=== PATIENT | female | born 1970 | race Caucasian/White ===

== ENCOUNTER → 2017-10-24 10:03 | Outpatient (CLI) | payer OTHER, SELFPAY ==
--- NOTE | 2017-10-24 10:14 | XR_ITS ---
XR cervical spine 5V Ordering Physician: Kashif Yang Patient Age: 47 years: Female HISTORY: ITS.REASON: NECK PAIN,ARM PAIN Neck pain radiates to the left arm bilateral arm numbness TECHNIQUE: Five-view cervical spine series. COMPARISON :None FINDINGS Cervical spine intact with no fracture nor subluxation. Nonspecific straightening most likely positional. Prevertebral soft tissues appear normal. Facets with normal relationships and satisfactory. No foramen widely patent. The disc spaces are well-maintained with only borderline narrowing C6/7. Mild anterior marginal osteophytes at C6/7. No prominent nor definitive spurring; only questionable subtle scant posterior ridging developing at C6/7. Equivocal. C1-C2 relationships appear normal. The dens appears normal. Apices the lungs are clear. Tiny linear 3 mm length less than 1 mm wide metallic appearing foreign body is projected over the cervical esophagus region lateral view but is not seen on other views and thus I favor is merely artifact on the cassette IMPRESSION: Cervical spine intact No prominent findings. Only Borderline disc narrowing C6/7. Anterior marginal osteophytes; and only question scant early posterior ridging at C6/7 No foraminal encroachment Nonspecific straightening noted. Most likely positional but can reflect muscle spasm related discomfort, pain
== END ==
PROVIDERS: PCP Internal Medicine; Visit Provider Internal Medicine
DX: M54.2 Cervicalgia (principal); M54.10 Radiculopathy, site unspecified; M79.602 Pain in left arm
CPT/HCPCS: 72050

== ENCOUNTER → 2022-07-10 12:50 | Outpatient (CLI) | payer OTHER, SELFPAY ==
[2022-07-10 16:09] LABS: Benzodiazepines Screen,Urine Negative ng/ml (<200)
[2022-07-10 16:10] LABS: Amphetamine/Metha Screen,Urine Negative ng/ml (<1000)
[2022-07-10 16:11] LABS: Barbiturates Screen,Urine Negative ng/ml (<200); Cannabinoid Screen,Urine Negative ng/ml (<50)
[2022-07-10 16:12] LABS: Cocaine Screen,Urine Negative ng/ml (<300)
[2022-07-10 16:13] LABS: Methadone Screen,Urine Negative ng/ml (<300); Opiate Screen,Urine Positive ng/ml (<300)
[2022-07-10 16:14] LABS: Phencyclidine Screen,Urine Negative ng/ml (<25)
== END ==
PROVIDERS: PCP Internal Medicine; Visit Provider Internal Medicine
DX: F11.90 Opioid use, unspecified, uncomplicated (principal); F41.9 Anxiety disorder, unspecified
CPT/HCPCS: 80305

== ENCOUNTER → 2022-10-09 11:05 | Outpatient (CLI) | payer OTHER, SELFPAY ==
--- NOTE | 2022-10-09 11:13 | CT_ITS ---
FINAL REPORT CLINICAL HISTORY: fall from horse 2 months ago. , posterior headaches, neck pain and stiffness, memory changes FINDINGS: Axial images of the head were obtained without contrast. Coronal reformatted images were also obtained.This study was performed with techniques to keep radiation doses as low as reasonably achievable (ALARA). Individualized dose reduction techniques using automated exposure control or adjustment of mA and/or kV according to the patient''s size were employed. There is no evidence of intracranial hemorrhage or mass. The ventricular size is within normal limits. There is no evidence of shift of the midline structures. No abnormal extra axial fluid collection is identified. A retention cyst or polyp is seen in the left maxillary sinus. No skull abnormality is seen on the bone window images. IMPRESSION: No acute intracranial abnormality. Reviewed, Interpreted and Dictated by Tyler Azevedo III, MD Transcribed by Estelle Zuluaga Authenticated and [facility]
--- NOTE | 2022-10-09 11:13 | CT_ITS ---
FINAL REPORT TECHNIQUE: Thin section axial CT images with coronal and sagittal reformats were performed through the neck. This study was performed with techniques to keep radiation doses as low as reasonably achievable (ALARA). Individualized dose reduction techniques using automated exposure control or adjustment of mA and/or kV according to the patient''s size were employed. CLINICAL HISTORY: FALL FROM HORSE 2MONTHS AGO,HEADACHES,NECK PAIN/STIFFNESS FINDINGS: There are small bilateral neck lymph nodes. No fluid collection is seen. No adenopathy or mass lesion is present . Salivary glands are normal. Nasopharynx, oropharynx, hypopharynx and larynx are unremarkable. Thyroid gland is unremarkable. There is no fracture of the cervical spine. There are mild degenerative changes with mild central canal stenosis at C6-7 secondary to disc osteophyte complex and small central disc protrusion. IMPRESSION: Small bilateral neck lymph nodes, otherwise unremarkable exam. No acute bony abnormality of the cervical spine. Reviewed, Interpreted and Dictated by Tyler Azevedo III, MD Transcribed by Estelle Zuluaga Authenticated and [facility]
== END ==
LOC: RAD 11:08
PROVIDERS: PCP Internal Medicine; Visit Provider Internal Medicine
DX: G44.321 Chronic post-traumatic headache, intractable (principal); M54.2 Cervicalgia; R41.3 Other amnesia; H93.19 Tinnitus, unspecified ear; V80.010D Animal-rider injured by fall from or being thrown from horse in noncollision accident, subsequent encounter
CPT/HCPCS: 70450; 70490; 72125

== ENCOUNTER → 2022-11-08 14:25 | Outpatient (CLI) | payer OTHER, SELFPAY ==
[2022-11-08 15:12] LABS: Basophils # 0.1 K/mm3 (0-0.2); Basophils % 0.8 % (0.1-2.0); Eosinophils # 0.2 K/mm3 (0.0-0.4); Eosinophils % 1.9 % (0.1-12.0); Hematocrit 49.6 % (37.0-47.0); Hemoglobin 16.1 g/dL (12.2-16.2); Lymphocytes % 38.3 % (10-50); Mean Corpuscular HGB Conc 32.4 g/dL (31.8-35.4); Mean Corpuscular Hemoglobin 30.9 pg (27.0-31.2); Mean Corpuscular Volume 95.4 fl (81-99); Mean Platelet Volume 11.7 fl (7.4-10.4); Monocytes # 0.5 K/mm3 (0.1-1.0); Neutrophils # 4.2 K/mm3 (1.8-7.8); Neutrophils % 52.9 % (37.0-80.0); Platelet Count 227 K/mm3 (142-424); Red Cell Distribution Width 12.7 % (11.5-17.5); White Blood Count 7.9 K/mm3 (4.8-10.8)
[2022-11-08 16:04] LABS: Alanine Aminotransferase 16 U/L (12-78); Albumin Level 4.6 g/dl (3.5-5.0); Alkaline Phosphatase 91 U/L (38-126); Aspartate Amino Transferase 17 U/L (14-36); Bilirubin,Total 0.7 mg/dl (0.2-1.3); Blood Urea Nitrogen 10 mg/dl (7-17); Calcium 9.8 mg/dl (8.4-10.2); Carbon Dioxide 28 mmol/L (22.0-30.0); Chloride 106 mmol/L (98-107); Estimated Glomerular Filt Rate 88 ml/min (>60); GFR (African American) 106 ML/MIN (>60); Globulin 2.3 g/dL (1.3-3.2); Glucose 88 mg/dl (74-100); Sodium 144 mmol/L (136-145); Total Protein,Serum 6.9 g/dl (6.3-8.2)
[2022-11-08 16:19] LABS: Free T4 (Free Thyroxine) 0.93 ng/dl (0.78-2.19)
[2022-11-08 16:33] LABS: Thyroid Stimulating Hormone 0.69 uIU/mL (0.465-4.68)
[2022-11-08 16:35] LABS: Erythrocyte Sedimentation Rate 7 mm/hr (0-30)
== END ==
PROVIDERS: PCP Internal Medicine; Visit Provider Internal Medicine
DX: I10 Essential (primary) hypertension (principal); F41.9 Anxiety disorder, unspecified; R51.9 Headache, unspecified; R63.4 Abnormal weight loss; B02.29 Other postherpetic nervous system involvement
CPT/HCPCS: 80053; 84439; 84443; 85025; 85651

== ENCOUNTER 2023-03-17 00:06 | Emergency (ER) | payer OTHER, SELFPAY ==
--- NOTE | 2023-03-17 00:15 | HMH.EDGENADL ---
Discharge Plan Disposition Patient Disposition: Home, Self-Care Referrals Follow up/Referrals: Kashif Yang MD [Primary Care Provider] - See instructions Activity Restrictions/Add. Instructions Additional Instructions/Restrictions: Your CT scan showed that your pituitary gland looked abnormal. It also shows that you might have a small left-sided aneurysm. This needs to be followed up with a urgent outpatient MRI and MR angiogram of the brain for further assessment. Please follow-up with your primary care provider. Please return to the emergency department if you develop any new or worsening symptoms or become concerned for your health. Clinical Impressions Clinical Impression: Pituitary lesion Headache Qualifiers: Headache type: unspecified Headache chronicity pattern: acute headache Intractability: not intractable Qualified Code(s): R51.9 - Headache, unspecified Discharge ED Provider: Ted Dumont Adult HPI General Chief complaint: Headache Stated complaint: eye pain, headache Time Seen by Provider: 03/17/23 00:10 History of Present Illness HPI narrative: 52-year-old female presents with right frontal headache for the last couple of days. She reports that she has been evaluated for headache and issues with her right eye over the last year after a fall off of a horse. She reports that she was recently seen by a retina specialist and there is some concern about an aneurysm, though she does not have a formal diagnosis at this point. She reports her headache has been present for the last couple of days, but acutely worsened this evening. She reports some nausea associated with this. She denies any vision changes chest pain shortness of breath neck pain. She took something at home for pain but is unsure what. Related Data Allergies Allergy/AdvReac Type Severity Reaction Status Date / Time From [facility] Allergy Intermediate I-RASH Uncoded 03/20/17 15:41 [facility] Disclaimer: The information contained in this section may have been updated after the patient was seen, as this information can be updated by other users. Social History Smoking Status: Unknown if ever smoked alcohol intake: never current occupational status: other Travel in the last 8 weeks: None ROS Obtained: Yes All systems reviewed & no additional complaints except as documented Physical Exam General General appearance: alert and anxious Head Head exam: atraumatic and normocephalic Eye Eye exam: Present normal appearance, PERRL and EOMI ENT ENT exam: Present normal oropharynx and normal external ear exam Neck Neck exam: Present normal inspection and full ROM Chest Chest inspection: Present normal inspection and symmetric chest wall rise; Absent tenderness Respiratory Respiratory exam: Present normal lung sounds bilaterally; Absent respiratory distress Cardiovascular Cardiovascular exam: Present regular rate and normal rhythm Abdominal Exam Abdominal exam: Present soft; Absent distention, tenderness or guarding Extremities Exam Extremities exam: Present normal inspection; Absent edema or joint swelling Back Exam Back exam: Present normal inspection; Absent tenderness Neurological Exam Neurological exam: Present alert and oriented X3; Absent motor sensory deficit Psychiatric Psychiatric exam: Present normal affect and normal mood Skin Skin exam: Present warm, dry and normal color Lymphatic Lymphatic Findings: no adenopathy Medical Decision Making Medical Records Medical records reviewed: Yes I reviewed the patient's medical records. Ángel Inquiry Pt receiving controlled substance: No Ángel was queried for this patient: No Vital Signs: 03/17/23 00:20 03/17/23 00:30 03/17/23 01:00 Temperature 98.9 F Temperature Source Oral Pulse Rate 65 68 Pulse Rate [Right Brachial] 83 Respiratory Rate 15 18 20 Blood Pressure 159/92 H 146/88 H Blood Pressure [Right Arm] 153/91 H Blood Pressure Mean 114 113 Bl
[2023-03-17 00:20] VITALS: BP 153/91; PULSE 83; RESP 15; TEMP 37.2; O2SAT 100; BMI 18.8
--- NOTE | 2023-03-17 00:23 | CT_ITS ---
PROCEDURE INFORMATION: Exam: CTA Head With Contrast, Arteriography Exam date and time: 03/17/2023 12:48 AM Age: 52 years old Clinical indication: Pain; Headache; Additional info: Acute R eye pain/almeida, nausea, HX poss aneurysm TECHNIQUE: Imaging protocol: Computed tomographic angiography of the head with contrast. Exam focused on the arteries. 3D rendering (Not supervised by radiologist): MIP and/or 3D reconstructed images were created by the technologist. Radiation optimization: All CT scans at this facility use at least one of these dose optimization techniques: automated exposure control; mA and/or kV adjustment per patient size (includes targeted exams where dose is matched to clinical indication); or iterative reconstruction. Contrast material: ISOVUE; Contrast volume: 100 ml; Contrast route: INTRAVENOUS (IV); REPORTING DATA: Count of CT and Cardiac NM exams in prior 12 months: This patient has received 2 known CTs and 0 known cardiac nuclear medicine studies in the 12 months prior to the current study. COMPARISON: CT HEAD/BRAIN WO CON 03/17/2023 12:46 AM FINDINGS: ANTERIOR CIRCULATION: Right internal carotid artery: Intracranial segment is patent with no significant stenosis. No aneurysm. Right middle cerebral artery: No occlusion or significant stenosis. No aneurysm. Right anterior cerebral artery: No occlusion or significant stenosis. No aneurysm. Left internal carotid artery: Intracranial segment is patent with no significant stenosis. 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 Left middle cerebral artery: No occlusion or significant stenosis. No aneurysm. Left anterior cerebral artery: No occlusion or significant stenosis. No aneurysm. POSTERIOR CIRCULATION: Right vertebral artery: No occlusion or significant stenosis. No aneurysm. Left vertebral artery: No occlusion or significant stenosis. No aneurysm. Basilar artery: No occlusion or significant stenosis. No aneurysm. Right posterior cerebral artery: origin right posterior cerebral artery. No aneurysm. Left posterior cerebral artery: Patent vessel. No aneurysm. Brain: No evidence for intracranial hemorrhage or extra-axial fluid collections. Cerebral ventricles: No ventriculomegaly. Pituitary gland and sella: There is a thickened irregular intensely enhancing pituitary infundibulum sagittal image 1002/66. Bones/joints: Unremarkable. No acute fracture. Soft tissues: Unremarkable. IMPRESSION: 1. No large vessel stenosis or occlusion. 2. 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 Conventional catheter angiogram and/or thin section MRA may be helpful to further delineate this finding. 3. No evidence for intracranial hemorrhage or extra-axial fluid collections. 4. There is a thickened irregular intensely enhancing pituitary infundibulum sagittal image 1002/66. This appearance is a wide differential diagnosis including infiltrating and granulomatous diseases. MRI with gadolinium pituitary protocol recommended to further delineate this finding.
--- NOTE | 2023-03-17 00:25 | CT_ITS ---
PROCEDURE INFORMATION: Exam: CTA Neck With Contrast Exam date and time: 03/17/2023 12:48 AM Age: 52 years old Clinical indication: Pain; Headache; Additional info: Acute R eye pain/almeida, nausea, HX poss aneurysm TECHNIQUE: Imaging protocol: Computed tomographic angiography of the neck with contrast. Exam focused on the cervical segments of the vasculature. 3D rendering (Not supervised by radiologist): MIP and/or 3D reconstructed images were created by the technologist. Radiation optimization: All CT scans at this facility use at least one of these dose optimization techniques: automated exposure control; mA and/or kV adjustment per patient size (includes targeted exams where dose is matched to clinical indication); or iterative reconstruction. Contrast material: ISOVUE; Contrast volume: 100 ml; Contrast route: INTRAVENOUS (IV); REPORTING DATA: Count of CT and Cardiac NM exams in prior 12 months: This patient has received 2 known CTs and 0 known cardiac nuclear medicine studies in the 12 months prior to the current study. COMPARISON: CT CERVICAL SPINE WO CON 10/09/2022 11:17 AM FINDINGS: Right common carotid artery: No stenosis. No dissection or occlusion. Right internal carotid artery: No stenosis of the extracranial segment. No dissection or occlusion. There is a 3.3 x 1.2 mm left medially oriented carotid ring in some seen on axial image 3/354. Right external carotid artery: No occlusion or stenosis of the origin. Left common carotid artery: No stenosis. No dissection or occlusion. Left internal carotid artery: No stenosis of the extracranial segment. No dissection or occlusion. Left external carotid artery: No occlusion or stenosis of the origin. Right vertebral artery: No stenosis. No dissection or occlusion. Left vertebral artery: No stenosis. No dissection or occlusion. Soft tissues: Low-density left thyroid lesion; recommend ultrasound. Enhancing and thickened pituitary infundibulum. Mild calcific plaque right carotid siphon. Bones/joints: No acute fracture. IMPRESSION: 1. No stenosis or occlusion of the neck vessels. 2. 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 Thin section MRA and/or conventional catheter angiogram recommended to further delineate this finding. 3. Enhancing and thickened pituitary infundibulum. This is a wide range of differential diagnostic etiologies including infiltrative and granulomatous diseases. Thin section pituitary gadolinium enhanced MRI recommended further delineate this finding. 4. Low-density left thyroid lesion; recommend ultrasound COMMENTS: Consistent with the [employer]'s Incidental Findings Committee white paper (J Am Shania Radiol 2015): In patients aged 35 years and older with an incidental thyroid nodule equal to or greater than 1.[address], MRI or extrathyroidal US, further evaluation with dedicated thyroid US is recommended for patients with normal life expectancy and without comorbidities. For smaller nodules without suspicious features, no further evaluation or follow up is recommended. REFERENCES: NASCET CRITERIA. The degree of stenosis in the cervical segment of the internal carotid artery is based on NASCET criteria. Normal is no stenosis. Mild is less than 50% stenosis. Moderate is 50-69% stenosis. Severe is 70% to 99% stenosis. Total occlusion is no detectable patent lumen.
--- NOTE | 2023-03-17 00:25 | CT_ITS ---
PROCEDURE INFORMATION: Exam: CT Head Without Contrast Exam date and time: 03/17/2023 12:46 AM Age: 52 years old Clinical indication: Pain; Headache; Additional info: Acute R eye pain/almeida, nausea, HX poss aneurysm TECHNIQUE: Imaging protocol: Computed tomography of the head without contrast. Radiation optimization: All CT scans at this facility use at least one of these dose optimization techniques: automated exposure control; mA and/or kV adjustment per patient size (includes targeted exams where dose is matched to clinical indication); or iterative reconstruction. REPORTING DATA: Count of CT and Cardiac NM exams in prior 12 months: This patient has received 2 known CTs and 0 known cardiac nuclear medicine studies in the 12 months prior to the current study. COMPARISON: CT HEAD/BRAIN WO CON 10/09/2022 11:17 AM FINDINGS: Brain: No evidence for intracranial hemorrhage, mass lesions or acute stroke. Asymmetric density right migdalia image 06/16. Cerebral ventricles: No ventriculomegaly. Pituitary gland and sella: Negative Paranasal sinuses: Visualized sinuses are unremarkable. No fluid levels. Mastoid air cells: Visualized mastoid air cells are well aerated. Orbital cavities: Negative. Parotid and submandibular glands: Negative Bones/joints: Unremarkable. No acute fracture. Soft tissues: Unremarkable. Vasculature: Negative. IMPRESSION: 1. No evidence for intracranial hemorrhage, mass lesions or acute stroke. 2. Asymmetric density right migdalia image 06/16. Although this could represent beam hardening artifact; MRI recommended to further delineate this finding. Additionally if the patient has focal neurologic deficit CT angiogram may be helpful as well.
[2023-03-17 00:30] VITALS: BP 159/92; PULSE 65; RESP 18; O2SAT 99
[2023-03-17 00:38] LABS: Albumin Level 4.4 g/dl (3.5-5.0); Potassium 4.6 mmoL/L (3.5-5.1); Sodium 139 mmol/L (136-145)
[2023-03-17 00:40] LABS: Alanine Aminotransferase 24 U/L (12-78); Albumin/Globulin Ratio 1.6 (1.1-1.8); Alkaline Phosphatase 53 U/L (38-126); Anion Gap 8.6 mEq/L (5-15); Aspartate Amino Transferase 40 U/L (14-36); Basophils # 0.1 K/mm3 (0-0.2); Basophils % 1.2 % (0.1-2.0); Bilirubin,Total 0.8 mg/dl (0.2-1.3); Blood Urea Nitrogen 17 mg/dl (7-17); Calcium 8.6 mg/dl (8.4-10.2); Carbon Dioxide 29 mmol/L (22.0-30.0); Chloride 106 mmol/L (98-107); Creatinine Clearance Estimated 69 mL/min (50-200); Eosinophils # 0.4 K/mm3 (0.0-0.4); Eosinophils % 3.5 % (0.1-12.0); Estimated Glomerular Filt Rate 88 ml/min (>60); GFR (African American) 106 ML/MIN (>60); Globulin 2.8 g/dL (1.3-3.2); Glucose 102 mg/dl (74-100); Hematocrit 46.2 % (37.0-47.0); Hemoglobin 15.6 g/dL (12.2-16.2); Lymphocytes # 5.7 K/mm3 (0.7-4.5); Lymphocytes % 48.2 % (10-50); Mean Corpuscular HGB Conc 33.6 g/dL (31.8-35.4); Mean Corpuscular Hemoglobin 32.6 pg (27.0-31.2); Mean Corpuscular Volume 96.8 fl (81-99); Mean Platelet Volume 9.3 fl (7.4-10.4); Monocytes # 0.6 K/mm3 (0.1-1.0); Monocytes % 5.1 % (1.7-9.3); Platelet Count 254 K/mm3 (142-424); Red Blood Count 4.77 M/mm3 (4.20-5.40); Red Cell Distribution Width 12.6 % (11.5-17.5); Total Protein,Serum 7.2 g/dl (6.3-8.2); White Blood Count 11.8 K/mm3 (4.8-10.8)
[2023-03-17 01:00] VITALS: BP 146/88; PULSE 68; RESP 20; O2SAT 98
[2023-03-17 01:31] VITALS: BP 136/74; PULSE 68; RESP 16; O2SAT 100
--- NOTE | 2023-03-17 01:55 | PC.NURSE ---
sherman calling re: ct scans, speaking with dr roque at this time
[2023-03-17 02:39] VITALS: BP 135/77; PULSE 74; RESP 16; TEMP 36.8; O2SAT 98
== END 2023-03-17 02:41 | disposition home or self-care (01) ==
PROVIDERS: Emergency Provider Emergency Medicine; PCP Internal Medicine
DX: R51.9 Headache, unspecified (principal); R11.0 Nausea
CPT/HCPCS: 70450; 70496; 70498; 80053; 85025; 96361; 96374; 96375; 99285; Q9967

== ENCOUNTER → 2023-03-19 13:46 | Outpatient (CLI) | payer OTHER, SELFPAY ==
--- NOTE | 2023-03-19 13:52 | MR_ITS ---
FINAL REPORT CLINICAL HISTORY: ABNORMAL CT, headaches 10ml prohance COMPARISON: None FINDINGS: Multiplanar MR imaging of the brain was performed without and with contrast. There are small scattered foci of abnormal signal in the deep white matter bilaterally, particularly in the subcortical region, greater than expected for the patient's age. The superior pituitary infundibulum is at the upper limits of normal in size, with enhancement. The pituitary gland itself is homogeneous. The infundibulum is best seen on image #7 of series 14. There is no evidence of intracranial hemorrhage or mass. No abnormal extra-axial fluid collection is seen. The ventricular size is within normal limits. There is no evidence of shift of the midline structures. The posterior fossa and brainstem have an unremarkable appearance. No area of abnormal restricted diffusion is identified. No abnormal contrast enhancement is seen. Normal major vessel vascular flow voids are noted. IMPRESSION: Superior pituitary infundibulum is at the upper limits of normal in size as described. This may represent an infiltrative process, and infectious etiology, including sarcoid, lymphocytic apophysitis, and clinical correlation is suggested. Small foci of abnormal signal in the deep white matter bilaterally as described, prominent in the subcortical regions. This could be an unusual appearance of ischemic/gliotic microvascular disease, or could be related to other etiologies such as vasculitis. Reviewed, Interpreted and Dictated by Tam Vela MD Transcribed by Kalina Oviedo Authenticated and [facility]
--- NOTE | 2023-03-19 13:52 | MR_ITS ---
FINAL REPORT CLINICAL HISTORY: ABNORMAL CT, headaches COMPARISON: CTA of the head 03/17/2023 FINDINGS: Multiple projection images of the brain arterial vasculature were obtained without contrast. raw data images were also reviewed. The internal carotid arteries are patent. The previously described aneurysm on the prior CTA of March 17 is not visualized on today's examination. The density in question appears to represent a densely enhancing pituitary stalk rather than a vascular abnormality. Bilateral posterior communicating arteries are present. The middle cerebral arteries and visualized proximal branches are patent. The anterior cerebral arteries are patent. The intracranial vertebral arteries are patent. The basilar artery is patent. The posterior cerebral arteries are patent. IMPRESSION: No aneurysm is identified on today's examination. The density in question on the prior CTA appears to represent a densely enhancing pituitary stalk measuring up to 4 mm in diameter. Reviewed, Interpreted and Dictated by Tam Vela MD Transcribed by Kalina Oviedo Authenticated and [facility]
== END ==
PROVIDERS: PCP Internal Medicine; Visit Provider Internal Medicine
DX: E23.7 Disorder of pituitary gland, unspecified (principal); I67.1 Cerebral aneurysm, nonruptured; R94.02 Abnormal brain scan
CPT/HCPCS: 70544; 70553; A9576

== ENCOUNTER → 2023-03-22 09:07 | Outpatient (CLI) | payer OTHER, SELFPAY ==
[2023-03-22 10:35] LABS: Free T4 (Free Thyroxine) 0.87 ng/dl (0.78-2.19); T4 (Thyroxine) 9.3 ug/dl (5.53-11.0)
[2023-03-22 10:48] LABS: Thyroid Stimulating Hormone 1.21 uIU/mL (0.465-4.68)
[2023-03-23 11:09] LABS: Estradiol 11.8 pg/mL (.); FSH 88.4 mIU/mL (.); LH 30.2 mIU/mL (.); Prolactin 7.9 ng/mL (3.6-25.2)
== END ==
LOC: LAB 09:08
PROVIDERS: PCP Internal Medicine; Visit Provider Internal Medicine
DX: E23.7 Disorder of pituitary gland, unspecified (principal); R51.9 Headache, unspecified
CPT/HCPCS: 36415; 82533; 82670; 83001; 83002; 84146; 84436; 84439; 84443

== ENCOUNTER 2024-05-19 17:01 | Outpatient (CLI) | payer OTHER, SELFPAY ==
[2024-05-19 17:53] LABS: Phencyclidine Screen,Urine Negative ng/ml (<25)
[2024-05-19 18:02] LABS: Amphetamine/Metha Screen,Urine Negative ng/ml (<1000)
[2024-05-19 18:04] LABS: Cannabinoid Screen,Urine Negative ng/ml (<50)
[2024-05-19 18:05] LABS: Barbiturates Screen,Urine Negative ng/ml (<200); Benzodiazepines Screen,Urine Positive ng/ml (<200)
[2024-05-19 18:06] LABS: Cocaine Screen,Urine Negative ng/ml (<300)
[2024-05-19 18:07] LABS: Methadone Screen,Urine Negative ng/ml (<300); Opiate Screen,Urine Negative ng/ml (<300)
== END 2024-05-19 23:59 | disposition home or self-care (01) ==
LOC: LAB.DROPOF 17:02
PROVIDERS: PCP Internal Medicine; Visit Provider Internal Medicine
DX: M47.817 Spondylosis without myelopathy or radiculopathy, lumbosacral region (principal); M47.812 Spondylosis without myelopathy or radiculopathy, cervical region; F41.9 Anxiety disorder, unspecified; B02.29 Other postherpetic nervous system involvement; N39.0 Urinary tract infection, site not specified
CPT/HCPCS: 80307; 87086; 87088; 87186